=== PATIENT | male | born 1950 | race Caucasian/White ===

== ENCOUNTER 2018-12-09 16:42 | Emergency (ER) | payer SELFPAY ==
[2018-12-09 18:24] LABS: #Basophils 0.1 thou/uL (0.0-0.2); #Eosinphils 0.2 thou/uL (0.0-0.7); #Lymphocytes 2.6 thou/uL (1.20-3.40); #Neutrophils 6.3 thou/uL (1.40-6.50); %Basophils 0.7 % (0.0-1.0); %Lymphocytes 25.3 % (21.0-51.0); %Monocytes 9.4 % (0.0-10.0); %Neutrophils 62.6 % (42.0-75.0); Hemoglobin 13.6 g/dL (14.0-18.0); Mean Corpuscular HGB CONC 33.6 g/dL (32.0-36.0); Mean Corpuscular Hemoglobin 31.9 pg (27.0-31.0); Mean Platelet Volume 6.6 fL (7.4-10.4); Platelet Count 486 thou/uL (130-400); RBC Distribution Width 11.9 % (11.5-14.5); Red Blood Cell (RBC) Count 4.27 mill/uL (4.70-6.10); White Blood Cell (WBC) Count 10.1 thou/uL (4.8-10.8)
[2018-12-09 18:37] LABS: ALT (SGPT) 16 U/L (8-55); AST (SGOT) 15 U/L (5-34); Albumin 3.7 g/dL (3.4-4.8); Alkaline Phosphatase 99 U/L (40-150); Anion Gap 14 mmol/L (10-20); BUN (Urea Nitrogen) 12 mg/dL (8.4-25.7); Bilirubin, Total 0.9 mg/dL (0.2-1.2); CK (CPK) 32 U/L (30-200); Calc. Creatinine Clearance 0 mL/min (70-130); Calcium 9.3 mg/dL (7.8-10.44); Carbon Dioxide 25 mmol/L (23-31); Chloride 102 mmol/L (98-107); Estimated GFR-MDRD Greater than 90; Globulin 3.7 g/dL (2.4-3.5); Glucose 89 mg/dL (80-115); Potassium 4.4 mmol/L (3.5-5.1); Protein, Total 7.4 g/dL (5.8-8.1); Sodium 137 mmol/L (136-145)
--- NOTE | 2018-12-09 19:17 | RAD ---
CHEST TWO VIEW: 12/09/18 HISTORY: Sore throat. COMPARISON: None. FINDINGS: Numerous punctate radiopacities project over the hemithorax as well as over the neck. The lungs are c lear. No pneumothorax or effusion. No acute osseous abnormality. IMPRESSION: Chronic findings. No acute intrathoracic abnormality. POS: H
== END 2018-12-09 20:39 | disposition home or self-care (01) ==
LOC: ERS 16:42
DX: J02.9 Acute pharyngitis, unspecified (principal); F17.210 Nicotine dependence, cigarettes, uncomplicated; Z71.6 Tobacco abuse counseling
CPT/HCPCS: 71046; 80053; 82550; 84484; 85025; 87081; 87430; 93005; 94760

== ENCOUNTER 2024-09-26 03:53 | Inpatient (IN) | payer MEDICARE, OTHER ==
[2024-09-26 04:35] LABS: #Eosinophils 0.04 10x3/uL (0.0-0.7); #Monocytes 1.02 10x3/uL (0.11-0.59); #Neutrophils 6.48 10x3/uL (1.40-6.50); %Basophils 1.1 % (0.0-1.0); %Eosinophils 0.4 % (0.0-10.0); %Lymphocytes 16.2 % (21.0-51.0); %Monocytes 11.1 % (0.0-10.0); %Neutrophils 70.9 % (42.0-75.0); Hematocrit 47.9 % (42.0-52.0); Hemoglobin 15.7 g/dL (14.0-18.0); Mean Corpuscular HGB CONC 32.8 g/dL (32.0-36.0); Mean Corpuscular Hemoglobin 31.3 pg (27.0-31.0); Mean Corpuscular Volume 95.6 fL (78.0-98.0); Mean Platelet Volume 10.3 fL (7.4-10.4); Platelet Count 230 10x3/uL (130-400); RBC Distribution Width 13.5 % (11.5-14.5); Red Blood Cell (RBC) Count 5.01 mill/uL (4.70-6.10); White Blood Cell (WBC) Count 9.15 10x3/uL (4.8-10.8)
[2024-09-26] MEDS ORDERED: Sodium Chloride 0.9% 100 ML ONE (04:43)
[2024-09-26] MEDS ORDERED: methylPREDNISolone Sod Succ/PF 125 MG/2 ML VIAL ONE (04:43)
[2024-09-26] MEDS ORDERED: Enoxaparin 80 MG (0.8 mL) SYRINGE ONE (04:43)
[2024-09-26] MEDS ORDERED: cefTRIAXone (ROCEPHIN) 2 GM VIAL ONE (04:43)
[2024-09-26] MEDS ORDERED: dilTIAZem 125 MG/25 ML SDV ONE (04:44)
[2024-09-26 04:47] LABS: INR-International Normal Ratio 1.2; Prothrombin Time 15.6 sec (12.0-14.7)
[2024-09-26 04:48] LABS: PTT 30.8 sec (22.9-36.1)
[2024-09-26 05:00] LABS: ALT (SGPT) 18 U/L (8-55); AST (SGOT) 25 U/L (5-34); Albumin 3.4 g/dL (3.4-4.8); Alkaline Phosphatase 120 U/L (40-110); Anion Gap 21 mmol/L (10-20); BUN (Urea Nitrogen) 13 mg/dL (8.4-25.7); Bilirubin, Total 2.5 mg/dL (0.2-1.2); Calc. Creatinine Clearance 0 mL/min (70-130); Carbon Dioxide 23 mmol/L (23-31); Chloride 105 mmol/L (98-107); Estimated GFR 81; Globulin 3.5 g/dL (2.4-3.5); Glucose 117 mg/dL (83-110); Potassium 4.7 mmol/L (3.5-5.1); Protein, Total 6.9 g/dL (5.8-8.1); Sodium 144 mmol/L (136-145)
[2024-09-26 05:01] LABS: Troponin I 0.023 ng/mL (< 0.028)
[2024-09-26] MEDS ORDERED: Furosemide 40 MG (4 mL) VIAL ONE ×2 (06:52→13:52)
[2024-09-26 07:36] LABS: Lactic Acid 3.47 mmol/L (0.5-2.2)
[2024-09-26] MEDS ORDERED: Ondansetron PF 4 MG/2 ML Vial IVP PRN (07:43)
[2024-09-26] MEDS ORDERED: Senokot S 8.6-50 MG TAB PO PRN (07:43)
[2024-09-26] MEDS ORDERED: Albuterol 2.5 MG (3 mL) NEB NEB PRN (07:43)
[2024-09-26] MEDS ORDERED: Bisacodyl 5 MG TAB PO PRN (07:43)
[2024-09-26] MEDS ORDERED: Ondansetron ODT 4 MG TAB PO PRN (07:43)
[2024-09-26] MEDS ORDERED: Acetaminophen 325 MG TAB PO PRN (07:43)
[2024-09-26 07:45] LABS: Troponin I 0.023 ng/mL (< 0.028)
[2024-09-26] MEDS ORDERED: dilTIAZem 125 MG in Sodium Chloride 0.9% 100 ML IVPB SCH (10:15)
[2024-09-26] MEDS ORDERED: Iopamidol-370 76% 500 ML MDV (1 ML CHARGE) ONE (10:51)
[2024-09-26 11:18] LABS: Magnesium 1.9 mg/dL (1.6-2.6)
[2024-09-26 11:25] VITALS: BMI 25.9
[2024-09-26] MEDS ORDERED: Azithromycin 500 MG VIAL ONE (11:48)
[2024-09-26] MEDS: methylPREDNISolone Sod Succ 40 MG VIAL IVP SCH (12:05)
[2024-09-26] MEDS: Azithromycin 500 MG in Sodium Chloride 0.9% 250 ML 250 ML IVPB SCH (12:05)
[2024-09-26] MEDS ORDERED: methylPREDNISolone Sod Succ 40 MG VIAL ONE (12:07)
[2024-09-26] MEDS ORDERED: Ipratropium/Albuterol 3 ML NEB ONE (12:07)
[2024-09-26] MEDS: Ipratropium/Albuterol 3 ML NEB NEB SCH (12:10)
[2024-09-26] MEDS: Furosemide 40 MG (4 mL) VIAL SLOW IVP SCH (14:06)
[2024-09-26] MEDS: Enoxaparin 100 MG (1 mL) SYRINGE SC SCH (18:42)
[2024-09-27 04:53] LABS: #Basophils Less than 0.03 10x3/uL (0.0-0.2); #Eosinophils Less than 0.03 10x3/uL (0.0-0.7); %Basophils 0.1 % (0.0-1.0); %Lymphocytes 8.4 % (21.0-51.0); %Monocytes 4.8 % (0.0-10.0); %Neutrophils 86.3 % (42.0-75.0); Hematocrit 42.5 % (42.0-52.0); Hemoglobin 14.3 g/dL (14.0-18.0); Mean Corpuscular HGB CONC 33.6 g/dL (32.0-36.0); Mean Corpuscular Hemoglobin 31.4 pg (27.0-31.0); Mean Corpuscular Volume 93.4 fL (78.0-98.0); Mean Platelet Volume 10.8 fL (7.4-10.4); Platelet Count 208 10x3/uL (130-400); RBC Distribution Width 13.5 % (11.5-14.5); Red Blood Cell (RBC) Count 4.55 mill/uL (4.70-6.10)
[2024-09-27 05:00] LABS: Anion Gap 14 mmol/L (10-20); BUN (Urea Nitrogen) 20 mg/dL (8.4-25.7); Calc. Creatinine Clearance 80 mL/min (70-130); Calcium 8.2 mg/dL (7.8-10.44); Carbon Dioxide 28 mmol/L (23-31); Chloride 101 mmol/L (98-107); Estimated GFR 91; Glucose 261 mg/dL (83-110); Sodium 140 mmol/L (136-145)
[2024-09-27] MEDS: dilTIAZem 125 MG, Admixture Fee 1 EACH in Sodium Chloride 0.9% 100 ML IVPB SCH (05:04)
[2024-09-27] MEDS: cefTRIAXone\\ROCEPHIN 1 GM in Sodium Chloride 0.9% 100 ML IVPB SCH (05:04)
[2024-09-27] MEDS ORDERED: Electrolyte Replacement Protocol 1 EACH FS SCH (07:47)
[2024-09-27] MEDS: Potassium Chloride 20 MEQ TAB PO SCH (08:32)
[2024-09-27 08:37] LABS: Magnesium 1.9 mg/dL (1.6-2.6)
[2024-09-27 10:27] LABS: Phosphorus 1.8 mg/dL (2.3-4.7)
[2024-09-27] MEDS: Magnesium 2 GM/50 ML(in water) 2 GM in Premix 1 BAG IVPB SCH (11:04)
[2024-09-27] MEDS: guaiFENesin ER 600 MG TAB PO SCH (11:04)
[2024-09-27] MEDS: PHOS-NAK 1 PKT PACK PO SCH (11:09)
[2024-09-27] MEDS: Pantoprazole 40 MG DR.TAB PO SCH (11:09)
[2024-09-27] MEDS ORDERED: dilTIAZem 125 MG, Admixture Fee 1 EACH in Sodium Chloride 0.9% 100 ML IVPB SCH (13:15)
[2024-09-27] MEDS: Potassium Phosphate 30 MMOL in Sodium Chloride 0.9% 250 ML 250 ML IVPB SCH (15:06)
[2024-09-27] MEDS: Nicotine 14 MG PATCH TD SCH (15:10)
[2024-09-27] MEDS: Ipratropium/Albuterol 3 ML NEB NEB PRN (18:43)
[2024-09-27] MEDS: Mometasone 200 MCG/Formoterol 5 MCG 120 PUFF INHALER INH SCH (18:46)
[2024-09-27] MEDS: Ipratropium Bromide 2.5 ml Neb NEB SCH (18:48)
[2024-09-27 19:10] LABS: Amphetamine Not Detected (NotDetected); Barbiturates Screen Not Detected (NotDetected); Benzodiazepine Screen Not Detected (NotDetected); Cocaine Metabolite Screen Not Detected (NotDetected); Methadone Not Detected (NotDetected); Methamphetamine Not Detected (NotDetected); Opiate Screen Not Detected (NotDetected); Oxycodone Screen Not Detected (NotDetected); Phencyclidine (PCP) Not Detected (NotDetected); THC/Cannabinoid Screen Not Detected (NotDetected); Tricyclic Screen Not Detected (NotDetected)
[2024-09-27] MEDS: Multivit, Therapeutic 1 TAB PO SCH (20:28)
[2024-09-27] MEDS: Cyanocobalamin (Vitamin B-12) 1,000 MCG TAB PO SCH (20:29)
[2024-09-27] MEDS: Folic Acid 1 MG TAB PO SCH (20:29)
[2024-09-27] MEDS: methylPREDNISolone Sod Succ 40 MG VIAL IVP SCH (20:29)
[2024-09-27] MEDS: Enoxaparin 80 MG (0.8 mL) SYRINGE SC SCH (20:29)
[2024-09-27] MEDS: Thiamine 100 MG TAB PO SCH (20:29)
[2024-09-27] MEDS: Cholecalciferol 1,000 UNITS (25 MCG) TAB PO SCH (20:29)
[2024-09-27 22:00] LABS: Potassium 3.7 mmol/L (3.5-5.1)
[2024-09-28 04:17] LABS: #Basophils Less than 0.03 10x3/uL (0.0-0.2); #Eosinophils Less than 0.03 10x3/uL (0.0-0.7); %Basophils 0.1 % (0.0-1.0); %Lymphocytes 4.6 % (21.0-51.0); %Monocytes 3.9 % (0.0-10.0); %Neutrophils 90.8 % (42.0-75.0); Hematocrit 44.1 % (42.0-52.0); Hemoglobin 14.6 g/dL (14.0-18.0); Mean Corpuscular HGB CONC 33.1 g/dL (32.0-36.0); Mean Corpuscular Hemoglobin 31.3 pg (27.0-31.0); Mean Corpuscular Volume 94.6 fL (78.0-98.0); Mean Platelet Volume 10.8 fL (7.4-10.4); Platelet Count 225 10x3/uL (130-400); RBC Distribution Width 13.7 % (11.5-14.5); Red Blood Cell (RBC) Count 4.66 mill/uL (4.70-6.10)
[2024-09-28 04:30] LABS: Phosphorus 4.3 mg/dL (2.3-4.7)
[2024-09-28 04:43] LABS: Anion Gap 15 mmol/L (10-20); BUN (Urea Nitrogen) 34 mg/dL (8.4-25.7); Calc. Creatinine Clearance 67 mL/min (70-130); Calcium 9.1 mg/dL (7.8-10.44); Carbon Dioxide 28 mmol/L (23-31); Chloride 101 mmol/L (98-107); Estimated GFR 74; Glucose 147 mg/dL (83-110); Magnesium 2.5 mg/dL (1.6-2.6); Potassium 3.7 mmol/L (3.5-5.1); Sodium 140 mmol/L (136-145)
[2024-09-28] MEDS ORDERED: Metoprolol Succinate XL 50 MG ER.TAB PO SCH (08:00)
[2024-09-28] MEDS: Furosemide 40 MG TAB PO SCH (09:10)
[2024-09-28] MEDS: dilTIAZem CD 120 MG CAP PO SCH (09:11)
[2024-09-28] MEDS: Potassium Chloride 20 MEQ TAB PO SCH (09:11)
[2024-09-28 13:44] LABS: Lactic Acid 2.73 mmol/L (0.5-2.2)
[2024-09-28] MEDS: Ipratropium/Albuterol 3 ML NEB NEB SCH ×2 (14:04→18:30)
[2024-09-28] MEDS: Empagliflozin 10 MG TAB PO SCH (14:11)
[2024-09-28] MEDS: Furosemide 40 MG (4 mL) VIAL SLOW IVP SCH (14:11)
[2024-09-28] MEDS: Nicotine 14 MG PATCH TD PRN (20:40)
[2024-09-28] MEDS: Apixaban 5 MG TAB PO SCH (20:41)
[2024-09-29 04:38] LABS: #Basophils Less than 0.03 10x3/uL (0.0-0.2); #Eosinophils Less than 0.03 10x3/uL (0.0-0.7); %Basophils 0.1 % (0.0-1.0); %Lymphocytes 4.3 % (21.0-51.0); %Monocytes 3.4 % (0.0-10.0); %Neutrophils 91.7 % (42.0-75.0); Hematocrit 43.9 % (42.0-52.0); Hemoglobin 14.5 g/dL (14.0-18.0); Mean Corpuscular Hemoglobin 31.5 pg (27.0-31.0); Mean Corpuscular Volume 95.4 fL (78.0-98.0); Mean Platelet Volume 10.8 fL (7.4-10.4); Platelet Count 198 10x3/uL (130-400); RBC Distribution Width 13.6 % (11.5-14.5)
[2024-09-29 04:45] LABS: Lactic Acid 1.89 mmol/L (0.5-2.2)
[2024-09-29 04:48] LABS: Anion Gap 13 mmol/L (10-20); BUN (Urea Nitrogen) 36 mg/dL (8.4-25.7); Calc. Creatinine Clearance 76 mL/min (70-130); Calcium 8.7 mg/dL (7.8-10.44); Carbon Dioxide 27 mmol/L (23-31); Chloride 101 mmol/L (98-107); Estimated GFR 83; Glucose 115 mg/dL (83-110); Potassium 3.9 mmol/L (3.5-5.1); Sodium 137 mmol/L (136-145)
[2024-09-29] MEDS: Empagliflozin 10 MG TAB PO SCH (09:15)
[2024-09-29] MEDS: Spironolactone 25 MG TAB PO SCH (17:06)
[2024-09-30 04:59] LABS: #Basophils Less than 0.03 10x3/uL (0.0-0.2); #Eosinophils Less than 0.03 10x3/uL (0.0-0.7); %Basophils 0.1 % (0.0-1.0); %Lymphocytes 5.2 % (21.0-51.0); %Monocytes 4.7 % (0.0-10.0); %Neutrophils 89.5 % (42.0-75.0); Hematocrit 45.9 % (42.0-52.0); Hemoglobin 15.1 g/dL (14.0-18.0); Mean Corpuscular HGB CONC 32.9 g/dL (32.0-36.0); Mean Corpuscular Hemoglobin 31.3 pg (27.0-31.0); Platelet Count 205 10x3/uL (130-400); RBC Distribution Width 13.7 % (11.5-14.5); Red Blood Cell (RBC) Count 4.83 mill/uL (4.70-6.10)
[2024-09-30 05:26] LABS: Anion Gap 13 mmol/L (10-20); BUN (Urea Nitrogen) 39 mg/dL (8.4-25.7); Calc. Creatinine Clearance 65 mL/min (70-130); Calcium 8.8 mg/dL (7.8-10.44); Carbon Dioxide 27 mmol/L (23-31); Chloride 100 mmol/L (98-107); Estimated GFR 77; Glucose 121 mg/dL (83-110); Sodium 136 mmol/L (136-145)
[2024-09-30] MEDS: dilTIAZem CD 180 MG CAP PO SCH (09:07)
[2024-09-30] MEDS: predniSONE 20 MG TAB PO SCH (09:11)
[2024-09-30] MEDS ORDERED: acetaZOLAMIDE Sodium 500 mg Vial IVP SCH (13:30)
[2024-09-30] MEDS ORDERED: Potassium Chloride 20 MEQ TAB PO SCH (13:30)
[2024-10-01 05:02] LABS: #Basophils Less than 0.03 10x3/uL (0.0-0.2); %Basophils 0.1 % (0.0-1.0); %Eosinophils 0.3 % (0.0-10.0); %Lymphocytes 10.9 % (21.0-51.0); %Monocytes 7.3 % (0.0-10.0); %Neutrophils 80.9 % (42.0-75.0); Hematocrit 46.6 % (42.0-52.0); Mean Corpuscular HGB CONC 32.2 g/dL (32.0-36.0); Mean Corpuscular Hemoglobin 30.6 pg (27.0-31.0); Mean Corpuscular Volume 95.1 fL (78.0-98.0); Platelet Count 204 10x3/uL (130-400); RBC Distribution Width 13.4 % (11.5-14.5)
[2024-10-01 05:38] LABS: Anion Gap 12 mmol/L (10-20); BUN (Urea Nitrogen) 35 mg/dL (8.4-25.7); Calc. Creatinine Clearance 61 mL/min (70-130); Calcium 8.7 mg/dL (7.8-10.44); Carbon Dioxide 30 mmol/L (23-31); Chloride 97 mmol/L (98-107); Estimated GFR 71; Glucose 102 mg/dL (83-110); Potassium 4.3 mmol/L (3.5-5.1); Sodium 135 mmol/L (136-145)
[2024-10-01] MEDS: dilTIAZem CD 240 MG CAP PO SCH (09:29)
[2024-10-01] MEDS: predniSONE 20 MG TAB PO SCH (09:29)
[2024-10-01] MEDS: Furosemide 40 MG TAB PO SCH (09:29)
[2024-10-01] MEDS: Nebivolol HCl 5 MG TAB PO SCH (13:32)
[2024-10-02 03:50] LABS: #Basophils Less than 0.03 10x3/uL (0.0-0.2); %Basophils 0.2 % (0.0-1.0); %Eosinophils 0.3 % (0.0-10.0); %Lymphocytes 9.6 % (21.0-51.0); %Monocytes 6.7 % (0.0-10.0); %Neutrophils 82.7 % (42.0-75.0); Hematocrit 45.1 % (42.0-52.0); Hemoglobin 14.7 g/dL (14.0-18.0); Mean Corpuscular HGB CONC 32.6 g/dL (32.0-36.0); Mean Corpuscular Hemoglobin 31.1 pg (27.0-31.0); Mean Corpuscular Volume 95.3 fL (78.0-98.0); Mean Platelet Volume 10.9 fL (7.4-10.4); Platelet Count 198 10x3/uL (130-400); RBC Distribution Width 13.2 % (11.5-14.5); Red Blood Cell (RBC) Count 4.73 mill/uL (4.70-6.10)
[2024-10-02 04:01] LABS: Anion Gap 15 mmol/L (10-20); BUN (Urea Nitrogen) 37 mg/dL (8.4-25.7); Calc. Creatinine Clearance 63 mL/min (70-130); Calcium 8.5 mg/dL (7.8-10.44); Carbon Dioxide 25 mmol/L (23-31); Chloride 99 mmol/L (98-107); Estimated GFR 77; Glucose 110 mg/dL (83-110); Magnesium 2.4 mg/dL (1.6-2.6); Sodium 134 mmol/L (136-145)
[2024-10-02] MEDS: Nebivolol HCl 5 MG TAB PO SCH (08:23)
[2024-10-02 11:51] VITALS: BP 121/75; TEMP 98.1
== END 2024-10-02 15:03 | disposition home or self-care (01) | DRG 291 ==
LOC: ERS 03:53 → ERHOLD 06:55 → 2NO 17:16
PROVIDERS: ADMIT Student in an Organized Health Care Education/Training Program; ATTEND Internal Medicine
DX: I50.33 Acute on chronic diastolic (congestive) heart failure (principal); J96.01 Acute respiratory failure with hypoxia; E87.20 Acidosis, unspecified; Z59.00 Homelessness unspecified; J44.1 Chronic obstructive pulmonary disease with (acute) exacerbation; I48.19 Other persistent atrial fibrillation; I48.91 Unspecified atrial fibrillation; I34.0 Nonrheumatic mitral (valve) insufficiency; Z99.81 Dependence on supplemental oxygen; Z79.899 Other long term (current) drug therapy
CPT/HCPCS: 36415; 36416; 71045; 71275; 80048; 80053; 80306; 83605; 83735; 83880; 84100; 84145; 84439; 84443; 84484; 85025; 85610; 85730; 86141; 87040; 87428; 93005; 93306; 94640; 94760; 96365; 96372; 96375; J0456; J0696; J1650; J1940; J2919; J3475; J7050; J7512; J7620; J7644; Q9967

== ENCOUNTER 2024-10-20 11:25 | Outpatient (CLI) | payer OTHER | END 2024-10-20 11:26 | disposition home or self-care (01) | LOC: BICULT 11:25 | DX: E04.1 Nontoxic single thyroid nodule (principal); R59.0 Localized enlarged lymph nodes; F17.200 Nicotine dependence, unspecified, uncomplicated; J90 Pleural effusion, not elsewhere classified; N28.9 Disorder of kidney and ureter, unspecified | CPT/HCPCS: 71250; 76536 ==